=== PATIENT | female | born 1995 | race Two or more races ===

== ENCOUNTER 2016-08-13 17:55 | Emergency (ER) | payer MEDICAID ==
[~2016-08-13] VITALS: Ht 170.2 cm; Wt 62.1 kg
[~2016-08-13 17:55] MED LIST: CARI350T21 PO; CLIN150C PO; DIA5T PO; NOR10T PO
[2016-08-13 19:32] VITALS: BP 110/72
[2016-08-13] MEDS ORDERED: ACETAMINOPHEN 500 MG TAB PO ONE ×2 (20:10→20:15)
== END 2016-08-13 20:20 | disposition home or self-care (01) ==
LOC: ER 18:07
DX: O26.891 Other specified pregnancy related conditions, first trimester (principal); E86.0 Dehydration; J02.9 Acute pharyngitis, unspecified

== ENCOUNTER 2016-10-12 21:04 | Emergency (ER) | payer MEDICAID ==
[~2016-10-12] VITALS: Ht 170.2 cm; Wt 65.8 kg
[2016-10-12 22:23] LABS: Basophils # (auto) 0 uL; Basophils % (auto) 0.3 % (0.0-2.0); Eosinophils # (auto) 0 uL; Eosinophils % (auto) 0.1 % (0.0-7.0); Hematocrit 29.7 % (36.0-46.0); Lymphocytes # (auto) 1.2 uL; Lymphocytes % (auto) 9.9 % (10.0-50.0); Mean Corpuscular Hemoglobin 31.4 pg (28.0-32.0); Mean Corpuscular Hgb Conc. 33.8 g/dL (32.0-36.0); Mean Corpuscular Volume 93.1 fL (80.0-100.0); Monocytes # (auto) 0.7 uL; Neutrophils # (auto) 10.1 uL; Neutrophils % (auto) 83.7 % (37.0-80.0); Platelet Count (auto) 193 10^3/uL (140-450); Red Cell Distribution Width 13.3 % (11.6-16.0); White Blood Cell 12.1 10^3/uL (4.4-10.8)
[2016-10-12 22:30] LABS: INR 1.08 (0.9-1.15); Partial Thromboplastin Time 26.7 sec (22.64-33.71); Prothrombin Time 11.1 sec (9.37-12.3)
[2016-10-12 22:39] LABS: Albumin 2.7 g/dL (3.4-5.0); Calcium 8.1 mg/dL (8.5-10.1); Potassium 3.6 mmol/L (3.5-5.1)
[2016-10-12 22:42] LABS: BUN/Creatinine Ratio 10.2
[2016-10-12 22:45] LABS: Bilirubin, Total 0.4 mg/dL (0.2-1.0)
[2016-10-12] MEDS ORDERED: MORPHINE SULF INJ 2 MG/ML SYRINGE 1ML IV ONE (22:45)
[2016-10-12] MEDS ORDERED: ONDANSETRON HCL 4 MG/2 ML VIAL IV ONE (22:45)
[2016-10-12] MEDS ORDERED: METHYLERGONOVINE MALEATE 0.2 MG/ML AMP IM ONE (22:45)
[2016-10-13 01:15] VITALS: BP 123/81
[2016-10-13] MEDS ORDERED: ACETAMINOPHEN/CODEINE#3 (300/30mg) TAB PO ONE (01:45)
== END 2016-10-13 01:30 | disposition home or self-care (01) ==
LOC: EDBD 21:04 → ER 21:08
DX: O03.9 Complete or unspecified spontaneous abortion without complication (principal); Z33.2 Encounter for elective termination of pregnancy
CPT/HCPCS: 36415; 76856; 80053; 84702; 85025; 85610; 85730; 86850; 86900; 86901; 96372; 96374; 96375; 99285; J2210; J2270; J2405

== ENCOUNTER 2017-04-04 11:55 | Emergency (ER) | payer SELFPAY ==
[~2017-04-04] VITALS: Ht 170.2 cm; Wt 60.3 kg
[~2017-04-04 11:55] MED LIST changes: +CARI-316 PO; -CARI350T21 PO
[2017-04-04 14:02] VITALS: BP 130/72
== END 2017-04-04 15:19 | disposition home or self-care (01) ==
LOC: EDBD 11:55 → ER 11:55
DX: O26.892 Other specified pregnancy related conditions, second trimester (principal); S30.1XXA Contusion of abdominal wall, initial encounter; Z3A.15 15 weeks gestation of pregnancy; Z79.899 Other long term (current) drug therapy; Y08.89XA Assault by other specified means, initial encounter; Y93.89 Activity, other specified; Y99.8 Other external cause status; Y92.89 Other specified places as the place of occurrence of the external cause
CPT/HCPCS: 76801

== ENCOUNTER 2024-01-02 05:33 | Emergency (ER) | payer MEDICAID ==
[~2024-01-02] VITALS: Ht 170.2 cm; Wt 70.0 kg
[~2024-01-02 05:33] MED LIST changes: -CARI-316 PO; +CARI-578 PO
[2024-01-02 06:27] LABS: Basophils # (auto) 0.1 10 ^3/uL (0-0.2); Basophils % (auto) 0.6 % (0.0-2.0); Eosinophils # (auto) 0 10 ^3/uL (0-0.8); Eosinophils % (auto) 0.1 % (0.0-7.0); Hematocrit 39.2 % (36.0-46.0); Hemoglobin 13.4 g/dL (12.2-16.2); Lymphocytes # (auto) 2.3 10 ^3/uL (0.4-5.4); Lymphocytes % (auto) 11.7 % (10.0-50.0); Mean Corpuscular Hemoglobin 31.8 pg (28.0-32.0); Mean Corpuscular Hgb Conc. 34.2 g/dL (32.0-36.0); Monocytes # (auto) 1.1 10 ^3/uL (0-1.3); Monocytes % (auto) 5.5 % (0.0-12.0); Neutrophils # (auto) 16.3 10 ^3/uL (1.6-8.6); Neutrophils % (auto) 82.1 % (37.0-80.0); Red Blood Cells 4.22 10^6/uL (4.0-5.20); Red Cell Distribution Width 12.8 % (11.8-14.3); White Blood Cell 19.9 10^3/uL (4.4-10.8)
[2024-01-02 06:40] LABS: INR 1.01 (0.9-1.15); Partial Thromboplastin Time 24.3 SEC (24.5-34.5); Prothrombin Time 10.7 sec (9.3-11.8)
[2024-01-02 06:45] LABS: Alanine Aminotransferase 17 U/L (7-40); Albumin 4.7 g/dL (3.2-4.8); Alkaline Phosphatase 73 U/L (46-116); Anion Gap 12 (5-15); Aspartate Aminotransferase 17 U/L (13-40); Bilirubin, Total 0.5 mg/dL (0.2-1.0); Blood Urea Nitrogen 7 mg/dL (9-23); Calcium 9.3 mg/dL (8.7-10.4); Carbon Dioxide 21 mmol/L (20-30); Chloride 105 mmol/L (98-107); Glucose 92 mg/dL (74-106); Potassium 2.8 mmol/L (3.5-5.1); Sodium 138 mmol/L (136-145); Total Protein 7.9 g/dL (5.7-8.2)
[2024-01-02 09:33] VITALS: BP 141/92; PULSE 95; RESP 16; TEMP 98.6; O2SAT 99
[2024-01-02] MEDS: LORazepam 2MG/ML-1ML VIAL IV ONE (09:57)
[2024-01-02] MEDS: SODIUM CHLORIDE 0.9% 1,000 ML IV ONE (09:57)
== END 2024-01-02 10:58 | disposition home or self-care (01) ==
LOC: EDBD 05:33 → EDUNIT# 05:33 → ER 05:33
DX: F10.239 Alcohol dependence with withdrawal, unspecified (principal); R10.2 Pelvic and perineal pain; F41.9 Anxiety disorder, unspecified; D72.829 Elevated white blood cell count, unspecified; Z79.899 Other long term (current) drug therapy; Y90.8 Blood alcohol level of 240 mg/100 ml or more
CPT/HCPCS: 36415; 80053; 80320; 83735; 83880; 84484; 84702; 85025; 85610; 85730; 93005; 96361; 96374; 99284; J2060; J7030